=== PATIENT | female | born 1960 | race Caucasian/White ===

== ENCOUNTER 2018-07-08 20:32 | Emergency (ER) | payer BC, OTHER ==
[2018-07-08] MEDS ORDERED: Ondansetron ODT 4 MG TAB ONE (20:44)
[2018-07-08] MEDS ORDERED: Prochlorperazine 10 MG/2 ML VIAL ONE (21:11)
[2018-07-08 21:24] LABS: Bilirubin Negative (Negative); Blood, Urine Moderate (Negative); Glucose, Urine (Dipstick) Negative (Negative); Leukocyte Trace (Negative); Nitrite Negative (Negative); Protein, Urine (Dipstick) Negative (Neg-Trace); Urobilinogen 0.2 mg/dL (0.2-1.0)
[2018-07-08 21:25] LABS: Clarity Hazy (Clear)
[2018-07-08 21:27] LABS: WBC/HPF 0-3 HPF (0-3)
[2018-07-08 21:28] LABS: Bacteria/HPF None Seen HPF (None Seen); Yeast-All Forms 1+ HPF (None Seen)
[2018-07-08] MEDS ORDERED: Loperamide HCl 2 MG CAP ONE (21:35)
== END 2018-07-08 21:53 | disposition home or self-care (01) ==
LOC: MADERS 20:32
DX: K52.9 Noninfective gastroenteritis and colitis, unspecified (principal); R30.0 Dysuria; B37.49 Other urogenital candidiasis; F32.9 Major depressive disorder, single episode, unspecified; M41.9 Scoliosis, unspecified; Z79.01 Long term (current) use of anticoagulants; Z79.899 Other long term (current) drug therapy
CPT/HCPCS: 81003; 81015; 96372; J0780; Q0162